=== PATIENT | female | born 1965 | race African-American/Black ===

== ENCOUNTER 2024-09-20 07:22 | Emergency (ER) | payer MEDICARE ==
[~2024-09-20] VITALS: Ht 170.2 cm; Wt 90.7 kg
[2024-09-20 07:24] VITALS: O2SAT 99
[2024-09-20] MEDS ORDERED: ASPI-1497 MT (07:29)
[2024-09-20] MEDS ORDERED: LISI40TA13 MT (07:29)
[2024-09-20 08:18] LABS: BASOPHILS % 1.9 % (0.0-2.0); DIFFERENTIAL COMMENT 0; EOSINOPHILS % 7.5 % (0.0-5.0); HEMATOCRIT. 40.1 % (36.0-48.0); HEMOGLOBIN. 12.8 g/dL (12.0-16.0); LYMPHOCYTES % 44.9 % (20.0-50.0); MEAN CORPUSCULAR HEMOGLOBIN 27.2 pg (28.0-32.0); MEAN CORPUSCULAR HGB CONC 31.9 g/dL (31.0-37.0); MEAN CORPUSCULAR VOLUME 85.2 fL (81.0-99.0); MEAN PLATELET VOLUME 9.6 fl (7.4-10.4); MONOCYTES % 10.3 % (2.0-8.0); NEUTROPHILS % 35.4 % (40.0-76.0); PLATELET 203 x1000/uL (130-400); RED BLOOD CELL COUNT 4.71 mill/uL (4.2-5.4); RED CELL DISTRIBUTION WIDTH 13.4 % (11.6-14.6); WHITE BLOOD COUNT 4.8 x1000/uL (4.5-11.0)
[2024-09-20] MEDS: KETOROLAC 30MG/ML VIAL IV STA (08:25)
[2024-09-20 08:28] LABS: CHLORIDE 109 mEq/L (98-107); SODIUM 143 mEq/L (136-145)
[2024-09-20 08:29] LABS: CALCIUM 9.3 mg/dL (8.7-10.4); CARBON DIOXIDE 27 mEq/L (21-32)
[2024-09-20 08:34] LABS: CREATININE 0.8 mg/dL (0.6-1.0); GLUCOSE 113 mg/dL (70-105); UREA NITROGEN BLOOD 11 mg/dL (9-23)
[2024-09-20 08:35] LABS: TROPONIN I HIGH SENSITIVITY 13 ng/L (3.0-34)
[2024-09-20] MEDS: HYDRALAZINE 20MG/ML VIAL IV ONE (08:56)
[2024-09-20] MEDS ORDERED: HYDR-4001 MT (09:57)
[2024-09-20] MEDS ORDERED: IBUP-2029 MT (09:57)
[2024-09-20 10:16] VITALS: BP 152/77; PULSE 75; RESP 22; TEMP 36.7; O2SAT 98
== END 2024-09-20 10:34 | disposition home or self-care (01) ==
LOC: ER 07:35
DX: M25.562 Pain in left knee (principal); R53.1 Weakness; I10 Essential (primary) hypertension; M06.9 Rheumatoid arthritis, unspecified; Z79.82 Long term (current) use of aspirin; Z79.899 Other long term (current) drug therapy; Z88.0 Allergy status to penicillin
CPT/HCPCS: 99285; 96374; 96375; 80048; 85025; 84484; 36415; 93005; J1885; J0360